=== PATIENT | female | born 1940 | race Caucasian/White ===

== ENCOUNTER → 2017-02-12 | Outpatient (CLI) | payer OTHER ==
[~2017-02-12] MED LIST: GADOBUTROL 10 ML VIAL IVP ONE
[2017-02-12 08:47] LABS: CREATININE 0.8 mg/dL (0.6-1.0); GLOMERULAR FILTRATION RATE > 60
== END ==
LOC: FIMAGING 07:48
PROVIDERS: ATTEND Psychiatry & Neurology Neurology
DX: M62.81 Muscle weakness (generalized) (principal); G96.19 Other disorders of meninges, not elsewhere classified; Z98.1 Arthrodesis status
CPT/HCPCS: 72156; A9585

== ENCOUNTER → 2017-03-30 | Outpatient (CLI) | payer OTHER | LOC: BMCIMAGING 10:58 | PROVIDERS: ATTEND Physician Assistant | DX: Z47.1 Aftercare following joint replacement surgery (principal); Z96.651 Presence of right artificial knee joint ==

== ENCOUNTER → 2017-11-16 | Outpatient (CLI) | payer OTHER | LOC: FIMAGING 12:19 | PROVIDERS: ATTEND Neurological Surgery | DX: M54.2 Cervicalgia (principal); Z98.1 Arthrodesis status ==

== ENCOUNTER 2017-12-27 14:32 | Observation (INO) | payer OTHER ==
--- NOTE | 2017-12-27 14:48 | CPEKG ---
Heart Rate: 55 RR Interval: 1091 P-R Interval: 168 QRSD Interval: 100 QT Interval: 452 QTC Interval: 433 P [place]: 29 QRS [place]: -21 T Wave [place]: 34 EKG Severity - ABNORMAL ECG - EKG Impression: SINUS RHYTHM EKG Impression: PROBABLE LEFT VENTRICULAR HYPERTROPHY Electronically Signed By: Belem Castano 27-Dec-2017 15:02:58
--- NOTE | 2017-12-27 15:16 | EDPHY ---
H & P Time Seen by Provider: 12/27/17 14:58 HPI/ROS: CHIEF COMPLAINT: Chest pain, nausea HISTORY OF PRESENT ILLNESS: Patient is a 77-year-old female who presents to the emergency department with chest pain last evening. The patient states she was sitting at her computer for about 30 min when she developed chest discomfort at 6:00 p.m.. Pain lasted for 20 min. She described it as moderate. It was"under my bra." It radiated to her nipples and to her"upper teeth." She denies shortness of breath. No cough or fever. No leg pain or swelling. The patient states that 14 years ago she was admitted to the hospital for chest pain. She was told that was reflux. Since that time she has had intermittent reflux type pain. This pain was significantly worse. The patient took 3 aspirin at the time of her pain and 2 aspirin this morning. REVIEW OF SYSTEMS: My complete review of systems is negative except as mentioned in the HPI. Past Medical/Surgical History: Includes depression Past surgical history: Includes hysterectomy, knee replacement Social history: Patient does not smoke Smoking Status: Never smoked Physical Exam: Vitals noted. GENERAL: Well-appearing, in no acute distress, alert. HEENT: Eyes normal to inspection, normal pharynx, no signs of dehydration. NECK: [No thyromegaly, no lymphadenopathy, supple. RESPIRATORY: Clear to auscultation bilaterally, no rales, rhonchi or wheezing. CVS: Regular rate and rhythm, no rubs, murmurs, or gallops. ABDOMEN: Soft, nontender, nondistended, no organomegaly. BACK: Normal to inspection, no CVA tenderness. SKIN: Normal color, no rash, warm, dry. No pallor. EXTREMITIES: No pedal edema, no calf tenderness, no Homans sign or cords, no joint swelling. NEURO/PSYCH: Alert and oriented x3, normal mood and affect, normal motor sensory exam. No obvious cranial nerve deficit. Constitutional: Initial Vital Signs Temperature (C) 36.4 C 12/27/17 14:37 Heart Rate 66 12/27/17 14:37 Respiratory Rate 18 12/27/17 14:37 Blood Pressure 160/88 H 12/27/17 14:37 O2 Sat (%) 94 12/27/17 14:37 O2 Delivery Mode Room Air Allergies/Adverse Reactions: Penicillins Allergy (Verified 12/27/17 14:35) Sulfa (Sulfonamide Antibiotics) Allergy (Verified 12/27/17 14:36) Tetracyclines Allergy (Verified 12/27/17 14:36) Home Medications: Medication Instructions Recorded Aspirin 81mg (*) 12/27/17 Claritin 12/27/17 Prozac 10 MG (*) 12/27/17 Medical Decision Making ED Course/Re-evaluation: The in the emergency department I discussed possible etiologies with the patient. I answered all her questions. IV was placed. Laboratory studies were obtained. Patient was given aspirin. Patient has no chest pain at this time. EKG shows normal sinus rhythm, normal rate, normal axis, normal intervals. There are no ST or T-wave abnormalities. EKG is normal as interpreted by me. CBC and chemistry unremarkable. Troponin was negative. D-dimer was elevated 1.38. Differential Diagnosis: My differential includes but is not limited to ACS, acute IL, dissection, aneurysm, PE, pneumonia, bronchitis, pericarditis, myocarditis - Data Points Laboratory Results: Laboratory Results 12/27/17 14:57 12/27/17 14:57 12/27/17 12/27/17 12/27/17 14:57 14:57 14:57 WBC 5.46 10^3/uL 10^3/uL (3.80-9.50) RBC 4.04 10^6/uL L 10^6/uL (4.18-5.33) Hgb 12.4 g/dL L g/dL (12.6-16.3) Hct 35.5 % L % (38.0-47.0) MCV 87.9 fL fL (81.5-99.8) MCH 30.7 pg pg (27.9-34.1) MCHC 34.9 g/dL g/dL (32.4-36.7) RDW 11.9 % % (11.5-15.2) Plt Count 221 10^3/uL 10^3/uL (150-400) MPV 8.8 fL fL (8.7-11.7) Neut % (Auto) 49.3 % % (39.3-74.2) Lymph % (Auto) 38.8 % % (15.0-45.0) [place] % (Auto) 9.9 % % (4.5-13.0) Eos % (Auto) 0.9 % % (0.6-7.6) Baso % (Auto) 0.7 % % (0.3-1.7) Nucleat RBC Rel Count 0.0 % % (0.0-0.2) Absolute Neuts (auto) 2.69 10^3/uL 10^3/uL (1.70-6.50) Absolute Lymphs (auto) 2.12 10^3/uL 10^3/uL (1.00-3.00) Absolute Monos (auto) 0.54 10^3/uL 10^3/uL (0.30-0.80) Absolute Eos (auto) 0.05 10^3/uL 10^3/uL (0.03-0.40) Absolute Basos (auto) 0.04 10^3/uL 10^3/uL (0.02-0.10) Absolute Nucleated RBC 0.00 10^3/uL 10^3/uL (0-0.01) Immature Gran % 0.4 % % (0.0-1.1) Immature Gran # 0.02 10^3/uL 10^3/uL (0.00-0.10) D-Dimer 1.38 ug/mLFEU H ug/mLFEU (0.00-0.50) Sodium 138 mEq/L mEq/L (135-145) Potassium 3.9 mEq/L mEq/L (3.5-5.2) Chloride 102 mEq/L mEq/L (97-110) Carbon Dioxide 26 mEq/l mEq/l (22-31) Anion Gap 10 mEq/L mEq/L (8-16) BUN 17 mg/dL mg/dL (7-23) Creatinine 0.8 mg/dL mg/dL (0.6-1.0) Estimated GFR > 60 Glucose 78 mg/dL mg/dL (70-100) Calcium 9.1 mg/dL mg/dL (8.5-10.4) Total Bilirubin 0.5 mg/dL mg/dL (0.1-1.4) Conjugated Bilirubin 0.4 mg/dL mg/dL (0.0-0.5) Unconjugated Bilirubin 0.1 mg/dL mg/dL (0.0-1.1) AST 22 IU/L IU/L (14-46) ALT 31 IU/L IU/L (9-52) Alkaline Phosphatase 88 IU/L IU/L (38-126) Troponin I < 0.012 ng/mL ng/mL (0.000-0.034) Total Protein 7.3 g/dL g/dL (6.3-8.2) Albumin 4.0 g/dL g/dL (3.5-5.0) Lipase 115 IU/L IU/L (23-300) Medications Given: Discontinued Medications Aspirin (Aspirin) 324 mg PO EDNOW ONE Stop: 12/27/17 15:18 Last Admin: 12/27/17 15:20 Dose: 324 mg Departure - Departure Disposition: [facility] Inpatient Acute Clinical Impression: Chest pain Qualifiers: Chest pain type: unspecified Qualified Code(s): R07.9 - Chest pain, unspecified Condition: Good Referrals: Kelsey Albert MD [Primary Care Provider] - As per Instructions
[2017-12-27] MEDS ORDERED: ASPIRIN 81 MG CHEWABLE TAB PO ONE (15:17)
[2017-12-27 15:22] LABS: PLATELET COUNT 221 10^3/uL (150-400)
[2017-12-27] MEDS ORDERED: IOPAMIDOL (ISOVUE 370) 100 ML BTL IV ONE (15:52)
[2017-12-27] MEDS ORDERED: ONDANSETRON 4 MG/2 ML VIAL IVP PRN (18:08)
[2017-12-27] MEDS ORDERED: ONDANSETRON DISINTEGRATING 4 MG TAB PO PRN (18:08)
[2017-12-27] MEDS ORDERED: ACETAMINOPHEN 325 MG TAB PO PRN ×2 (18:08→18:30)
[2017-12-27] MEDS ORDERED: oxyCODONE IR 5 MG TAB PO PRN (18:08)
[2017-12-27] MEDS ORDERED: hydrALAZINE 20 MG/ML VIAL IVP PRN (18:56)
--- NOTE | 2017-12-27 18:57 | PDGENHP ---
History and Physical - Chief Complaint chest pain - History of Present Illness The patient is a 77-year-old female who presents twith with chest pain last evening which started at 6 pm and ended at 630 pm. She reports the pain started at her mid back and extended laterally toward the right flanks, ribs, and involved her chest. She also reports the pain radiating to her jaw. Shes has had multiple minor episodes today. They are not exertional. She currently denies cp or sob. no palpitations. She does report leg edema which as been present for a long time and does not appear to have been worked up. she reports malaise. In the E.D. she was noted to have an elevated BP in the 180s. No BUTLER. No focal weakness. She does not have a hx of HTN. She denies fever, cough, sob, n/v. She had an elevated D-Dimer. She had a negative CTA of the chest. CXR was negative. EKG was non ischemic. She is being admitted for chest pain, malaise, and pedal edema. Past Medical Hx Includes depression Past surgical history: Includes hysterectomy, knee replacement Social history: Patient does not smoke. she is FmHx: her son from an [place] at age 41 History Information - Allergies/Home Medication List Allergies/Adverse Reactions: Penicillins Allergy (Verified 12/27/17 17:16) Sulfa (Sulfonamide Antibiotics) Allergy (Verified 12/27/17 17:16) Tetracyclines Allergy (Verified 12/27/17 17:16) Home Medications: Aspirin EC [Aspirin EC 81 mg (*)] 81 mg PO DAILY 12/27/17 [Last Taken 12/27/17] FLUoxetine HCL [Fluoxetine HCl] 40 mg PO DAILY 12/27/17 [Last Taken 12/27/17] Famotidine/Ca Carb/Mag Hydrox [Hm Complete Tablet Chew] 1 ea PO DAILY 12/27/17 [ Last Taken 12/27/17] Loratadine 10 mg PO DAILY 12/27/17 [Last Taken 12/27/17] I have personally reviewed and updated: medical history, social history - Social History Smoking Status: Never smoked Review of Systems Review of Systems: ROS: 10pt was reviewed & negative except for what was stated in HPI & below Physical Exam Physical Exam: Temp Pulse Resp BP Pulse Ox 36.6 C 55 L 15 180/94 H 92 12/27/17 17:55 12/27/17 17:55 12/27/17 17:55 12/27/17 17:55 12/27/17 17:55 Constitutional: no apparent distress Eyes: PERRL, EOMI Ears, Nose, Mouth, Throat: moist mucous membranes, hearing normal Cardiovascular: regular rate and rhythym, edema (trace bilaterally, L worse than Right) Respiratory: no respiratory distress, no rales or rhonchi, clear to auscultation Gastrointestinal: normoactive bowel sounds, soft, non-tender abdomen Skin: warm Musculoskeletal: full muscle strength Neurologic: AAOx3 Psychiatric: interacting appropriately, not anxious, not encephalopathic Lab Data & Imaging Review 12/27/17 14:57 12/27/17 14:57 WBC 5.46 10^3/uL (3.80-9.50) 12/27/17 14:57 RBC 4.04 10^6/uL (4.18-5.33) L 12/27/17 14:57 Hgb 12.4 g/dL (12.6-16.3) L 12/27/17 14:57 Hct 35.5 % (38.0-47.0) L 12/27/17 14:57 MCV 87.9 fL (81.5-99.8) 12/27/17 14:57 MCH 30.7 pg (27.9-34.1) 12/27/17 14:57 MCHC 34.9 g/dL (32.4-36.7) 12/27/17 14:57 RDW 11.9 % (11.5-15.2) 12/27/17 14:57 Plt Count 221 10^3/uL (150-400) 12/27/17 14:57 MPV 8.8 fL (8.7-11.7) 12/27/17 14:57 Neut % (Auto) 49.3 % (39.3-74.2) 12/27/17 14:57 Lymph % (Auto) 38.8 % (15.0-45.0) 12/27/17 14:57 [place] % (Auto) 9.9 % (4.5-13.0) 12/27/17 14:57 Eos % (Auto) 0.9 % (0.6-7.6) 12/27/17 14:57 Baso % (Auto) 0.7 % (0.3-1.7) 12/27/17 14:57 Nucleat RBC Rel Count 0.0 % (0.0-0.2) 12/27/17 14:57 Absolute Neuts (auto) 2.69 10^3/uL (1.70-6.50) 12/27/17 14:57 Absolute Lymphs (auto) 2.12 10^3/uL (1.00-3.00) 12/27/17 14:57 Absolute Monos (auto) 0.54 10^3/uL (0.30-0.80) 12/27/17 14:57 Absolute Eos (auto) 0.05 10^3/uL (0.03-0.40) 12/27/17 14:57 Absolute Basos (auto) 0.04 10^3/uL (0.02-0.10) 12/27/17 14:57 Absolute Nucleated RBC 0.00 10^3/uL (0-0.01) 12/27/17 14:57 Immature Gran % 0.4 % (0.0-1.1) 12/27/17 14:57 Immature Gran # 0.02 10^3/uL (0.00-0.10) 12/27/17 14:57 D-Dimer 1.38 ug/mLFEU (0.00-0.50) H 12/27/17 14:57 Sodium 138 mEq/L (135-145) 12/27/17 14:57 Potassium 3.9 mEq/L (3.5-5.2) 12/27/17 14:57 Chloride 102 mEq/L (97-110) 12/27/17 14:57 Carbon Dioxide 26 mEq/l (22-31) 12/27/17 14:57 Anion Gap 10 mEq/L (8-16) 12/27/17 14:57 BUN 17 mg/dL (7-23) 12/27/17 14:57 Creatinine 0.8 mg/dL (0.6-1.0) 12/27/17 14:57 Estimated GFR > 60 12/27/17 14:57 Glucose 78 mg/dL (70-100) 12/27/17 14:57 Calcium 9.1 mg/dL (8.5-10.4) 12/27/17 14:57 Total Bilirubin 0.5 mg/dL (0.1-1.4) 12/27/17 14:57 Conjugated Bilirubin 0.4 mg/dL (0.0-0.5) 12/27/17 14:57 Unconjugated Bilirubin 0.1 mg/dL (0.0-1.1) 12/27/17 14:57 AST 22 IU/L (14-46) 12/27/17 14:57 ALT 31 IU/L (9-52) 12/27/17 14:57 Alkaline Phosphatase 88 IU/L (38-126) 12/27/17 14:57 Troponin I < 0.012 ng/mL (0.000-0.034) 12/27/17 14:57 Total Protein 7.3 g/dL (6.3-8.2) 12/27/17 14:57 Albumin 4.0 g/dL (3.5-5.0) 12/27/17 14:57 Lipase 115 IU/L (23-300) 12/27/17 14:57 Assessment & Plan Assessment: #Intermittent Chest Pain #Pedal Edema #Elevated D-Dimer -Negative CTA chest #HTN #Bradycardia on telemetry, Sinus, not symptomatic #Anemia Plan: Observation chest pain r/o, serial trops, EKG, TTE, telemetry Her chest pain, rib pain, and back pain does not appear to be cardiac in nature. She has had minimal pain since yesterday and trop was negative. EKG reassuring cont appropriate home meds check for risk factors Hydralazine for BP support SCD's
[2017-12-28 04:52] LABS: PLATELET COUNT 197 10^3/uL (150-400)
[2017-12-28] MEDS ORDERED: ASPIRIN EC 81 MG TAB PO SCH (09:00)
[2017-12-28] MEDS ORDERED: MAG HYDROX PO SCH (09:00)
[2017-12-28] MEDS ORDERED: CETIRIZINE 10 MG TAB PO SCH (09:00)
[2017-12-28] MEDS ORDERED: CA CARB PO SCH (09:00)
[2017-12-28] MEDS ORDERED: FLUoxetine 20 MG CAP PO SCH (09:00)
[2017-12-28] MEDS ORDERED: FAMOTIDINE PO SCH (09:00)
--- NOTE | 2017-12-28 10:19 | ECHO ---
[email or web address] [address] [address] Main: [phone] Fax: [email or web address] Echocardiogram Name: ROMIE JAMES MR#: [id number] Study Date: 12/28/2017 Study Time: 08:00 AM Date of : 1940 Age: 77 year(s) Height: 170.2 cm (67 in.) Weight: 88 kg (194 lb.) BSA: 2 m2 Gender: Female Examination: Echo Indication: pedal edema chest pain Image Quality: Adequate Contrast: Requested by: Rusty Dela Cruz BP: 140 mmHg/73 mmHg Heart Rate: Rhythm: Indication: pedal edema chest pain Procedure Staff Sh[employer] Supervisor: Rochelle Lobato RDCS Reading Physician: Fabiano Gayle MD Requesting Provider: Conclusions: Normal size left ventricle. Concentric LV hypertrophy. Normal global systolic LV function. EF is 55 %. Normal size right ventricle. There is mild thickening of the mitral valve leaflets. Mild mitral valve regurgitation is present. The aortic valve is tri-leaflet and functions normally. Mild aortic valve regurgitation is present. The tricuspid valve is normal in appearance and function. Mild tricuspid regurgitation is present. Right ventricular systolic pressure measures 24mmHg. Trivial pulmonic valve regurgitation. Normal size ascending aorta measuring 3.7 cm. No pericardial effusion. Measurements: Chambers Valvular Assessment AV/MV Valvular Assessment TV/PV Normal Normal Normal Name Value Range Name Value Range Name Value Range Ao Lamar (MM): 3.5 cm (2.2 cm-3.7 AV meanP mmHg ( - ) TR Vmax: 2.20 mm/s ( - ) cm) TOÑO (VTI): 2.3 cm ( - ) TR PGmax: 19 mmHg ( - ) IVSd (2D): 1.4 cm (0.6 cm-1.1 AR (PHT): 733 ms ( - ) syst. PAP: 24 mmHg ( - ) cm) MV E Vmax: 0.56 m/s ( - ) PV Vmax: 0.81 m/s (0.6 m/s-0.9 LVDd (2D): 3.9 cm (3.9 cm-5.3 MV A Vmax: 0.63 m/s ( - ) m/s) cm) MV E/A: 0.89 ( - ) PV PGmax: 3 mmHg ( - ) LVDs (2D): 2.8 cm (2.1 cm-4 cm) LVPWd (2D): 1.2 cm ( - ) LVOTd 1.9 cm 1.9 cm mm Patient: ROMIE JAMES Study Date: 12/28/2017 Page 1 of 2 08:00 AM LVEF (BP): 55 % (>=55 %) RVDd(2D): 3.2 cm (1.9 cm-3.8 cmmm) Continued Measurements: Chambers Valvular Assessment AV/MV Valvular Assessment TV/PV Name Value Name Value Name Value LADs: 3.3 cm MV DecTime: 254 m/s CVP (est.): 5 mmHg LADs Lon.0 cm MV E' Septal: 0.06 m/s LA Area: 15.2 cm2 MV E/E' Septal: 9.40 LA Volume: 40 ml MV E/E' Lateral: 8.50 LA Volume Index: 20.0 ml/m2 AR Vmax: 3.74 cm/s RA Area: 15.0 cm2 Additional Vessels Name Value Ao Ascendin.7 cm Findings: Left Ventricle: Normal size left ventricle. Concentric LV hypertrophy. Normal global systolic LV function. EF is 55 %. No regional wall motion abnormality. Normal diastolic LV function. Right Ventricle: Normal size right ventricle. Normal RV function. Left Atrium: The left atrium is normal in size. Right Atrium: The right atrium is normal in size. Mitral Valve: The mitral valve is normal in appearance and function. There is mild thickening of the mitral valve leaflets. Mild mitral valve regurgitation is present. No mitral stenosis is present. Aortic Valve: The aortic valve is tri-leaflet and functions normally. Aortic sclerosis is present. Mild aortic valve regurgitation is present. No aortic valve stenosis is present. Tricuspid Valve: The tricuspid valve is normal in appearance and function. Mild tricuspid regurgitation is present. The pulmonary artery pressure is normal. Right ventricular systolic pressure measures 24mmHg. Pulmonic Valve: The pulmonic valve is normal in appearance and function. Trivial pulmonic valve regurgitation. Aorta: The aorta is normal. Normal size aortic root measuring 3.5 cm. Normal size ascending aorta measuring 3.7 cm. IVC: The IVC is normal sized. Pericardium: No pericardial effusion. There is pericardial fat. (No Signature Object) Patient: ROMIE JAMES Study Date: 12/28/2017 Page 2 of 2 08:00 AM [id number]
--- NOTE | 2017-12-28 12:14 | CPR ---
[f rep st] NONINVASIVE CARDIAC PROCEDURE REPORT DATE OF PROCEDURE: 12/28/2017 PROCEDURE: Treadmill stress test. REASON FOR TEST: Chest discomfort. Resting EKG shows a regular sinus rhythm. There are no EKG changes. Resting blood pressure is 124/80. Resting heart rate 82. She is asymptomatic prior to exercise. EXERCISE PORTION: She was exercised according to the Medardo protocol for a total of 5 minutes and 51 seconds. Peak heart rate 138. Peak blood pressure 180/90. Maximal MET effort 6.9. She became fatigued and shortness of breath into the last minute. She did have EKG changes in the inferior leads with occasional PVC. At peak exercise, she did have ST depression in the inferior leads with occasional PVC. Peak blood pressure was 180/90. RECOVERY: The test was stopped, and she did spontaneously recover with no complaint of chest pain. IMPRESSION: This is an abnormal treadmill stress test. Recommendation is for Lexiscan stress testing today. At this time, she is stable to return to her room. /[id number]/MODL MTDD
--- NOTE | 2017-12-28 13:16 | ASMTCASEMG ---
Living Arrangements What is your living Answers: With Spouse arrangement? Who do you live with? Type Of Residence What kind of residence do Answers: House you live in? Discharge Plan Comments Coordination Status Comments Notes: Pt is a 77 y/o female admitted for chest pain. Pt is having a stress test and an echo done today. Pt will most likely d/c independent when medically stable. No therapies ordered at this time. CM available for changes. Plan: Independent Date Signed: 12/28/2017 01:15 PM Electronically Signed By:TEJINDER Armendariz
[2017-12-28] MEDS ORDERED: REGADENOSON 0.4 MG/5 ML SYR IVP ONE (14:25)
[2017-12-28 16:22] VITALS: BP 145/90
--- NOTE | 2017-12-28 17:41 | CPR ---
[f rep st] NONINVASIVE CARDIAC PROCEDURE REPORT PROCEDURE PERFORMED: Lexiscan nuclear stress test. REASON FOR TEST: 1. Chest pain. 2. Abnormal EKG. 3. Abnormal treadmill stress test. RESTING DATA: Resting EKG shows a rate of 54, Q-wave in lead III and V1, V2 anterior leads. Resting blood pressure 158/80, resting heart rate 55, oxygen saturation 92%. STRESS PORTION: Lexiscan nuclear stress test: Lexiscan was injected rapidly, followed by saline flu sh. Cardiolite was then injected, followed by saline flush. She did get short of breath with mild c hest discomfort after the injection. Her blood pressure was 114/66, heart rate peaked at 90, oxygen saturation 94%. No EKG changes from baseline. RECOVERY: She did spontaneously recover her blood pressure in recovery 146/84, heart rate 78, oxygen saturation 94%. Her symptoms did subside with caffeine. At this time, she currently is stable for nuclear imaging. /[id number]/MODL
--- NOTE | 2017-12-28 17:51 | GDS ---
[f rep st] DISCHARGE SUMMARY ALL DIAGNOSES: 1. Atypical chest pain. 2. Hypertension. 3. Hiatal hernia. 4. Anemia. HOSPITAL COURSE: A 77-year-old female admitted with atypical chest pain. She had a Heart Score of 4 . She underwent exercise treadmill during which she had some inferior ST depressions. Because of th is, she underwent a Lexiscan with nuclear imaging. This showed no evidence of ischemia. It showed q uestion of apical thinning at the apex versus small focal infarct. She had an echocardiogram with no wall motion abnormalities in this distribution. She had no ectopy on telemetry. This, in addition to her normal EKG and undetectable troponins, I interpreted as a negative cardiac workup. Discussed informally with Dr. Gayle, who agrees. Would recommend following up with Shop [facility] in 1-2 weeks, given the mild abnormality seen on her nuclear imaging. Follow up with her primary care physician f or ongoing management of her hypertension as well as suspected GI disease. Discussed this at length with the patient. She is discharged in stable condition. /[id number]/MODL
== END 2017-12-28 18:40 | disposition home or self-care (01) ==
LOC: SUPCPDRO 14:32 → F2W 17:40
PROVIDERS: ADMIT Family Medicine; ATTEND Family Medicine
DX: R07.9 Chest pain, unspecified (principal); I10 Essential (primary) hypertension; K44.9 Diaphragmatic hernia without obstruction or gangrene; D64.9 Anemia, unspecified
CPT/HCPCS: 71046; 71275; 78452; 93005; 93017; 93306; 99285; A9500; G0378; J2785; Q9967

== ENCOUNTER → 2018-02-13 | Outpatient (CLI) | payer OTHER | LOC: BMCIMAGING 16:48 | PROVIDERS: ATTEND Physician Assistant | DX: M16.12 Unilateral primary osteoarthritis, left hip (principal) ==

== ENCOUNTER → 2018-02-23 | Outpatient (CLI) | payer OTHER | LOC: FIMAGING 14:20 | DX: Z13.6 Encounter for screening for cardiovascular disorders (principal); I70.0 Atherosclerosis of aorta; E78.5 Hyperlipidemia, unspecified; Z82.49 Family history of ischemic heart disease and other diseases of the circulatory system ==

== ENCOUNTER → 2018-03-08 | Outpatient (CLI) | payer OTHER | LOC: BMCIMAGING 09:37 | PROVIDERS: ATTEND Internal Medicine | DX: Z13.820 Encounter for screening for osteoporosis (principal); M85.89 Other specified disorders of bone density and structure, multiple sites; E28.39 Other primary ovarian failure; Z78.0 Asymptomatic menopausal state ==